=== PATIENT | male | born 1955 | race Caucasian/White ===

== ENCOUNTER 2022-02-26 12:45 | Inpatient (IN) | payer BC, MEDICARE ==
[~2022-02-26] VITALS: Ht 175.3 cm; Wt 95.4 kg
[2022-02-26] VITALS (11 sets, daily range): BP systolic 89–130; BP diastolic 49–74
[~2022-02-26 12:45] MED LIST: APIX5TAB3 PO; ASPI-1264 PO; CARV-49 PO; FURO40TA4 PO; LISI-642 PO; MELA3TAB39 PO
[2022-02-26] MEDS ORDERED: naloxone 0.4 mg/ml inj IV ONE (12:55)
[2022-02-26] MEDS ORDERED: ketamine 10mg/ml 20ml inj vial IV ONE (13:00)
[2022-02-26] MEDS ORDERED: NORepinephrine 8mg/ 250ml NS 250 ML IV ONE (13:05)
[2022-02-26 13:06] LABS: ABG BASE EXCESS -9.9 mmol/L (-2.0-2.0); ABG HCO3 20.7 mmol/L (22.0-26.0); ABG OXYGEN SATURATION 61.3 % (94-97); ABG PCO2 (T) 71.2 mmHg (35.0-48.0); ABG PO2 (T) 40.6 mmHg (75.0-100.0); ALLEN'S TEST POSITIVE; FCOHb 2.5 % (0.0-3.9); FLOW 15 L/min; FMetHb 0.2 % (0.0-1.5); FO2Hb 59.6 % (94-97); TOTAL HEMOGLOBIN 11.4 G/dl (14.0-17.9)
[2022-02-26] MEDS ORDERED: rocuronium 10mg/ml inj IV ONE (13:09)
[2022-02-26 13:15] LABS: BASOPHILS # (AUTO) 0.2 X10'3 (0-0.2); EOSINOPHILS % (AUTO) 0 % (0-6); HEMOGLOBIN 9.6 g/dl (14.0-17.9); LYMPHOCYTES # (AUTO) 0.4 X10'3 (1.1-4.8)
[2022-02-26 13:17] LABS: BASOPHILS % (AUTO) 1.6 % (0-1); HEMATOCRIT 35.4 % (42.0-52.0); LYMPHOCYTES % (AUTO) 3.2 % (21-51); MEAN CORPUSCULAR HEMOGLOBIN 19.4 PG (27.0-31.0); MEAN CORPUSCULAR VOLUME 71.7 FL (78-98); MEAN PLATELET VOLUME 9.5 FL (7.4-10.4); MONOCYTES # (AUTO) 1.5 X10'3 (0-0.9); MONOCYTES % (AUTO) 10.9 % (2-12); NEUTROPHILS # (AUTO) 11.5 X10'3 (1.8-7.7); NEUTROPHILS % (AUTO) 84.3 % (42-75); PLATELET COUNT 117 X10'3 (140-440); RED BLOOD COUNT 4.93 X10'6 (4.70-6.10); RED CELL DISTRIBUTION WIDTH 25.8 % (11.5-14.5); WHITE BLOOD COUNT 13.6 X10'3 (4.5-11.0)
[2022-02-26 13:31] LABS: ALANINE AMINOTRANSFERASE 111 U/L (12-78); ALBUMIN 2.7 G/DL (3.4-5.0); ALKALINE PHOSPHATASE 143 IU/L (46-116); ANION GAP 10 (8-16); ASPARTATE AMINO TRANSFERASE 486 U/L (10-37); BILIRUBIN,TOTAL 5.8 MG/DL (0.1-1.0); BLOOD UREA NITROGEN 38 MG/DL (7-18); BUN/CREATININE RATIO 14.6 (5.4-32.0); CHLORIDE 101 MMOL/L (99-107); CREATININE 2.61 MG/DL (0.60-1.10); GLUCOSE 106 MG/DL (70-104); POTASSIUM 4.6 MMOL/L (3.5-5.1); SODIUM 138 MMOL/L (135-145); TOTAL CARBON DIOXIDE 26.6 MMOL/L (24-32); eGFR 24 ML/MIN
[2022-02-26 13:33] LABS: ALBUMIN/GLOBULIN RATIO 0.6 (1.1-1.5); TOTAL PROTEIN 6.9 G/DL (6.4-8.2)
[2022-02-26 13:34] LABS: ETHANOL < 0.010 GM/DL (0.0-0.010)
[2022-02-26 13:38] LABS: LACTIC SEPSIS 5.5 MMOL/L (0.4-2.0)
[2022-02-26 13:39] LABS: ANISOCYTOSIS 3+; NUCLEATED RED BLOOD CELLS 2 /100WBC (0-0); PLATELET ESTIMATE DECREASED; TOTAL CELLS COUNTED 100
[2022-02-26 13:40] LABS: HYPOCHROMASIA 2+; MICROCYTOSIS 1+; POLYCHROMASIA 1+
[2022-02-26 13:41] LABS: ELLIPTOCYTES 2+; SCHISTOCYTES FEW; TARGET CELLS FEW
--- NOTE | 2022-02-26 13:59 | NUR ---
4L removed via Paracentesis
[2022-02-26] MEDS ORDERED: NORepinephrine bitart. inj. IV ONE (14:00)
[2022-02-26] MEDS ORDERED: levoFLOXACIN-Levaquin 500mg/D5 100 ML IV ONE (14:25)
[2022-02-26] MEDS ORDERED: CefTRIAXone 2gm/D5W 50ml BAG 50 ML IV ONE (14:25)
[2022-02-26] MEDS ORDERED: normal saline 1000ml 1,000 ML IV ONE ×2 (14:30)
[2022-02-26] MEDS: fentaNYL 50mcg/ml PF inj. 2,500 MCG in normal saline 250ml IV soln 200 ML IV SCH (14:48)
[2022-02-26] MEDS ORDERED: ipratropium/albuterol 3ml nebule NEB PRN (15:05)
[2022-02-26] MEDS ORDERED: LIDOcaine 2% 10ml TOPICAL JELLY (Urojet) TP ONE (15:05)
[2022-02-26] MEDS ORDERED: morphine 2 MG/ML inj. syringe IV PRN (15:05)
[2022-02-26] MEDS ORDERED: morphine 4 MG/ML inj SYRINge IV PRN (15:05)
[2022-02-26] MEDS ORDERED: ondansetron/PF 4mg/2ml inj IV PRN (15:05)
[2022-02-26] MEDS ORDERED: acetaminophen 325mg tablet PO PRN ×2 (15:05)
[2022-02-26] MEDS ORDERED: POTASSIUM BICARB 20meq eff tab 20 MEQ TABLET.EFF PO PRN ×2 (15:05)
[2022-02-26] MEDS ORDERED: normal saline 1000ml 1,000 ML IV SCH (15:05)
[2022-02-26] MEDS ORDERED: ipratropium 0.5 MG/2.5ML nebule NEB PRN (15:05)
[2022-02-26] MEDS ORDERED: magnesium hydroxide 30ml (MOM) UD suspension PO PRN (15:05)
[2022-02-26 15:12] LABS: ABG HCO3 22.1 mmol/L (22.0-26.0); ABG OXYGEN SATURATION 99.7 % (94-97); ABG PCO2 (T) 39.6 mmHg (35.0-48.0); ABG PO2 (T) 198.5 mmHg (75.0-100.0); ALLEN'S TEST POSITIVE; FMetHb 0.2 % (0.0-1.5); FO2Hb 97.5 % (94-97); PEEP 5 cm H2O; RESPIRATORY RATE 18 b/min; TIDAL VOLUME 500 mL; TOTAL HEMOGLOBIN 9.9 G/dl (14.0-17.9)
[2022-02-26] MEDS ORDERED: iohexol 300mg/ml 100ml inj. ONE (15:20)
[2022-02-26 15:22] LABS: BFAPPEAR CLOUDY; LYMPHOCYTES,BODY FLUID 2 %; MONOCYTES,BODY FLUID 3 %; NEUTROPHILS,BODY FLUID 95 %
[2022-02-26 15:23] LABS: BF RBC COUNT 5875 /CU MM; BF WBC COUNT 12175 /CU MM (0-1000); BFCOLOR YELLOW; BFVOLUME 11 ML
[2022-02-26] MEDS: NORepinephrine 8mg/ 250ml NS 250 ML IV SCH ×3 (15:35→23:41)
[2022-02-26 16:42] LABS: CLARITY,URINE SLIGHTLY CLOUDY (Clear); COLOR,URINE AMBER (Yellow)
[2022-02-26 16:48] LABS: UA COLLECTION TYPE FOLEY CATH
[2022-02-26 16:50] LABS: WBC,URINE 50-100 /HPF (0-4)
[2022-02-26 16:51] LABS: BACTERIA,URINE 4+ /HPF (Neg); COARSE GRANULAR CAST 0-3 /LPF (NEGATIVE); MUCUS STRANDS FEW /LPF (Neg); RBC,URINE 0-2 /HPF (0-2); RENAL CELLS, URINE FEW /HPF; SQUAMOUS EPITHELIAL CELL,UR NONE SEEN /LPF (FEW); URINE AMPHETAMINE SCREEN POSITIVE (Neg); URINE BARBITUATE SCREEN NEGATIVE (Neg); URINE BENZODIAZEPINES SCREEN NEGATIVE (Neg); URINE CANNABINOID SCREEN NEGATIVE (Neg); URINE COCAINE SCREEN NEGATIVE (Neg); URINE METHADONE SCREEN NEGATIVE (Neg); URINE OPIATE SCREEN NEGATIVE (Neg); URINE PHENCYCLIDINE SCREEN NEGATIVE (Neg); WBC CLUMPS,URINE FEW /HPF (NEGATIVE)
--- NOTE | 2022-02-26 17:03 | NUR ---
Pt. to room [address] scan (and ED) at 1600. Coude catheter placed, pt. hooked up to bedside monitor, RT here to place pt. on vent. Labs, UA and MRSA nasal swab obtained and send to lab. Wound pics obtained per policy. Pt. cool with esophageal temp probe reading 31.4 and temporal reading the same. SELIN golden placed on pt. boiler/chiller technician here.
[2022-02-26] MEDS: lactulose 20gm/30ml cup PO SCH ×2 (17:16→21:01)
[2022-02-26 17:44] LABS: MAGNESIUM 1.7 MG/DL (1.5-2.4)
--- NOTE | 2022-02-26 17:51 | NUR ---
Pt. responds to verbal stimuli.
--- NOTE | 2022-02-26 18:12 | NUR ---
Problems reprioritized. Patient report given, questions answered & plan of care reviewed with Mac RN.
[2022-02-26] MEDS ORDERED: normal saline 1000ml 1,000 ML IVB ONE (19:45)
--- NOTE | 2022-02-26 19:46 | NUR ---
Communication -Called Dr. Bradford regarding hypotension and hypothermia. Pt currently on Levo and Lima Hugger. Received order to add Vasopressin and give 1 liter of warmed NS over 2 hours. Saline is running through blood warmer at 41 C.
[2022-02-26] MEDS ORDERED: vasopressin inj. 40 UNIT in dextrose 5%-water 50ml 38 ML IV SCH (19:54)
[2022-02-26] MEDS: heparin, porcine 5000 units/ml vial SQ SCH (21:00)
[2022-02-26] MEDS ORDERED: dextrose 50%-water 50ml dispensing syringe IV ONE (23:04)
--- NOTE | 2022-02-26 23:30 | NUR ---
Communication -Called Dr. Bradford regarding POC glucose of 36. Orders received.
[2022-02-26] MEDS ORDERED: dextrose 5%-normal saline 1,000 ML IV SCH (23:35)
[2022-02-27] VITALS (34 sets, daily range): BP systolic 77–130; BP diastolic 41–73
[2022-02-27 00:49] LABS: ALANINE AMINOTRANSFERASE 85 U/L (12-78); ALBUMIN 1.6 G/DL (3.4-5.0); ALKALINE PHOSPHATASE 96 IU/L (46-116); ANION GAP 13 (8-16); ASPARTATE AMINO TRANSFERASE 344 U/L (10-37); BLOOD UREA NITROGEN 41 MG/DL (7-18); BUN/CREATININE RATIO 16.6 (5.4-32.0); CALCIUM 7.8 MG/DL (8.5-10.1); CHLORIDE 104 MMOL/L (99-107); CREATININE 2.47 MG/DL (0.60-1.10); GLUCOSE 122 MG/DL (70-104); MAGNESIUM 1.6 MG/DL (1.5-2.4); POTASSIUM 4.2 MMOL/L (3.5-5.1); SODIUM 141 MMOL/L (135-145); TOTAL CARBON DIOXIDE 23.6 MMOL/L (24-32); eGFR 26 ML/MIN
[2022-02-27 00:56] LABS: ALBUMIN/GLOBULIN RATIO 0.6 (1.1-1.5); PHOSPHORUS 4.3 MG/DL (2.3-4.5); TOTAL PROTEIN 4.4 G/DL (6.4-8.2)
[2022-02-27] MEDS ORDERED: dextrose 50%-water 50ml dispensing syringe IV ONE ×4 (02:50→08:05)
--- NOTE | 2022-02-27 03:15 | NUR ---
Communication -Called Dr. Bradford regarding POC glucose of 40. Orders received.
[2022-02-27] MEDS: DEXTROSE 10 % AND 0.45 % NACL 1,000 ML IV SCH ×3 (03:27→23:22)
[2022-02-27] MEDS: NORepinephrine 8mg/ 250ml NS 250 ML IV SCH (03:28)
[2022-02-27 04:01] LABS: CHLORIDE 105 MMOL/L (99-107); MAGNESIUM 1.7 MG/DL (1.5-2.4); POTASSIUM 4.6 MMOL/L (3.5-5.1); SODIUM 141 MMOL/L (135-145)
[2022-02-27] MEDS ORDERED: CALCIUM GLUC 1gm/50ml NACL,iso 50 ML IV ONE (04:05)
--- NOTE | 2022-02-27 04:06 | NUR ---
MD Communication -Called Dr. Bradford regarding continued hypoglycemia and hypotension. Orders received.
[2022-02-27 04:08] LABS: ABG BASE EXCESS -4.9 mmol/L (-2.0-2.0); ABG HCO3 21.1 mmol/L (22.0-26.0); ABG OXYGEN SATURATION 94.2 % (94-97); ABG PCO2 (T) 44.1 mmHg (35.0-48.0); ABG PO2 (T) 81.4 mmHg (75.0-100.0); ALLEN'S TEST POSITIVE; FCOHb 1.4 % (0.0-3.9); FMetHb 0.2 % (0.0-1.5); FO2Hb 92.7 % (94-97); PATIENT TEMPERATURE 37.9; PEEP 5 cm H2O; RESPIRATORY RATE 18 b/min; TIDAL VOLUME 500 mL; TOTAL HEMOGLOBIN 10.9 G/dl (14.0-17.9)
[2022-02-27 04:10] LABS: EOSINOPHILS % (AUTO) 0.1 % (0-6); LYMPHOCYTES # (AUTO) 0.3 X10'3 (1.1-4.8); NEUTROPHILS # (AUTO) 6.1 X10'3 (1.8-7.7); RED BLOOD COUNT 5.21 X10'6 (4.70-6.10)
[2022-02-27 04:13] LABS: BASOPHILS % (AUTO) 0.2 % (0-1); HEMOGLOBIN 10.4 g/dl (14.0-17.9); LYMPHOCYTES % (AUTO) 4.3 % (21-51); MEAN PLATELET VOLUME 8.9 FL (7.4-10.4); MONOCYTES # (AUTO) 0.9 X10'3 (0-0.9); MONOCYTES % (AUTO) 11.7 % (2-12); NEUTROPHILS % (AUTO) 83.7 % (42-75); WHITE BLOOD COUNT 7.3 X10'3 (4.5-11.0)
[2022-02-27 04:18] LABS: ALANINE AMINOTRANSFERASE 85 U/L (12-78); ALBUMIN 1.6 G/DL (3.4-5.0); ALKALINE PHOSPHATASE 99 IU/L (46-116); ANION GAP 11 (8-16); ASPARTATE AMINO TRANSFERASE 346 U/L (10-37); BILIRUBIN,TOTAL 3.9 MG/DL (0.1-1.0); BLOOD UREA NITROGEN 43 MG/DL (7-18); BUN/CREATININE RATIO 17.2 (5.4-32.0); CALCIUM 7.8 MG/DL (8.5-10.1); TOTAL CARBON DIOXIDE 24.6 MMOL/L (24-32); eGFR 26 ML/MIN
[2022-02-27 04:21] LABS: ALBUMIN/GLOBULIN RATIO 0.5 (1.1-1.5); TOTAL PROTEIN 4.6 G/DL (6.4-8.2)
[2022-02-27 04:22] LABS: GLUCOSE 42 MG/DL (70-104)
[2022-02-27] MEDS: NORepinephrine inj. 32 MG in normal saline 250ml IV soln 218 ML IV SCH ×2 (04:51→11:26)
[2022-02-27] MEDS ORDERED: dexamethasone 4mg/ml inj IV ONE (05:05)
--- NOTE | 2022-02-27 05:06 | NUR ---
MD Communication -Called Dr. Bradford regarding continued hypoglycemia. Orders received.
--- NOTE | 2022-02-27 05:50 | NUR ---
Communication -Called Dr. Bradford regarding hypoglycemia. Order received.
[2022-02-27 05:51] LABS: HEMATOCRIT 34.2 % (42.0-52.0); MEAN CORPUSCULAR VOLUME 66.7 FL (78-98)
[2022-02-27 05:52] LABS: MEAN CORPUSCULAR HEMOGLOBIN 20.4 PG (27.0-31.0); MEAN CORPUSCULAR HGB CONC 30.7 g/dL (33.0-36.5)
[2022-02-27 05:53] LABS: PLATELET COUNT 90 X10'3 (140-440)
--- NOTE | 2022-02-27 06:00 | NUR ---
Patient in room CICU 2009. I have received report from Mac RN and had the opportunity to ask questions and assume patient care.
[2022-02-27 06:53] LABS: NUCLEATED RED BLOOD CELLS 7 /100WBC (0-0); TOTAL CELLS COUNTED 100
[2022-02-27 06:54] LABS: ANISOCYTOSIS 3+; BURR CELLS 1+; HYPOCHROMASIA 1+; MICROCYTOSIS 2+; PLATELET ESTIMATE DECREASED
[2022-02-27 06:55] LABS: ELLIPTOCYTES 2+; LARGE PLATELETS FEW; SCHISTOCYTES FEW; TARGET CELLS FEW
[2022-02-27] MEDS ORDERED: pantoprazole 40mg Tablet.DR PO SCH (07:30)
--- NOTE | 2022-02-27 07:34 | NUR ---
TF consult: Pt found down w/ acute respiratory failure, septic shock, and chronic liver disease per EMR, had paracentesis in ER w/ 4L out per MD note. Currently intubated and sedated, receiving D10 1/2NS at 100ml/hr (816kcals). See TF recs below d/w RN. CRONIN pending for skin breakdown on buttocks and hip. Will continue to monitor. Recs; 1) Continuous TF using Vital HP at 80ml/hr goal to provide 1920ml volume, 1920kcals, 1678g protein, 1605ml free water. Monitor for scaled wt 2) Additional water flush 75ml Q4H; monitor serum Na 3) PALB Q / 4) Daily wts 5) Bowel care per rx Addendum: 02/27/22 at [address] Amended: Links added.
[2022-02-27] MEDS: K and/or MAG REPLACEMENT MC SCH (08:00)
[2022-02-27] MEDS ORDERED: glucagon, human recombinant 1mg kit SUBCUT PRN (08:05)
[2022-02-27] MEDS ORDERED: dextrose 50%-water 50ml dispensing syringe IV PRN ×2 (08:05)
[2022-02-27] MEDS ORDERED: MESSAGE TO PHARMACY PO ONE (08:05)
[2022-02-27] MEDS ORDERED: DEXTROSE 15 GM of carb/4 tabs (each vial/BOTTLE has 4 tablets) PO PRN ×2 (08:05)
[2022-02-27] MEDS ORDERED: insulin regular, human U-100 3ml vial - multi-dose SQ SCH (08:05)
[2022-02-27] MEDS: CefTRIAXone/D5W-Rocephin 1gm 50 ML IV SCH (08:06)
[2022-02-27] MEDS: pantoprazole 40MG/NS 100ML BAG 100 ML IV SCH (08:10)
[2022-02-27] MEDS: heparin, porcine 5000 units/ml vial SQ SCH ×2 (08:11→20:00)
[2022-02-27] MEDS: lactulose 20gm/30ml cup PO SCH (08:11)
[2022-02-27] MEDS: vasopressin inj. 40 UNIT in normal saline 50ml IV soln 38 ML IV SCH (08:13)
[2022-02-27 08:16] LABS: PREALBUMIN 2.1 MG/DL (19-36)
[2022-02-27 08:28] LABS: HEMOGLOBIN A1C 5.7 % (4.5-6.2)
[2022-02-27] MEDS ORDERED: POTASSIUM BICARB 20meq eff tab 20 MEQ TABLET.EFF OGT PRN ×2 (10:59→11:00)
[2022-02-27] MEDS ORDERED: acetaminophen 325mg tablet OGT PRN ×2 (11:00)
[2022-02-27] MEDS ORDERED: DEXTROSE 15 GM of carb/4 tabs (each vial/BOTTLE has 4 tablets) OGT PRN ×2 (11:00)
[2022-02-27] MEDS: lactulose 20gm/30ml cup OGT SCH ×3 (13:00→20:44)
[2022-02-27] MEDS ORDERED: UNABLE TO OBTAIN (14:50)
--- NOTE | 2022-02-27 17:52 | NUR ---
During 1699 turn, and oral care patient was noted to have a much larger and firmer distended belly, called Dr. Pérez after obtaining a KUB that showed multiple loops of dialted bowel, Dr. Pérez ordered a stat abd and pelvis with no contrast and lactic acid Addendum: 02/27/22 at 1755 by Li Moulton RN also informed Dr. Pérez that i stopped tube feed and placed on LIS to which patient is now having julio red blood gastric contents
--- NOTE | 2022-02-27 18:30 | NUR ---
Patient in room CICU 2009. I have received report from Li JIMENEZ and had the opportunity to ask questions and assume patient care.
--- NOTE | 2022-02-27 18:44 | NUR ---
Problems reprioritized. Patient report given, questions answered & plan of care reviewed with Shani JIMENEZ.
[2022-02-27] MEDS: insulin glargine (Lantus) pen - multi-dose SQ SCH (20:45)
[2022-02-27 21:19] LABS: MEAN PLATELET VOLUME 8.8 FL (7.4-10.4); WHITE BLOOD COUNT 20.2 X10'3 (4.5-11.0)
[2022-02-27 21:46] LABS: HEMATOCRIT 30.8 % (42.0-52.0); PLATELET COUNT 44 X10'3 (140-440); RED BLOOD COUNT 4.77 X10'6 (4.70-6.10)
[2022-02-27 21:47] LABS: MEAN CORPUSCULAR HGB CONC 32.6 g/dL (33.0-36.5); MEAN CORPUSCULAR VOLUME 64.6 FL (78-98); RED CELL DISTRIBUTION WIDTH 25.3 % (11.5-14.5)
[2022-02-28] VITALS (35 sets, daily range): BP systolic 100–141; BP diastolic 53–77
[2022-02-28 02:32] LABS: BASOPHILS % (AUTO) 0.1 % (0-1); EOSINOPHILS % (AUTO) 0 % (0-6)
[2022-02-28 02:36] LABS: LYMPHOCYTES # (AUTO) 0.8 X10'3 (1.1-4.8); LYMPHOCYTES % (AUTO) 4.1 % (21-51); MEAN PLATELET VOLUME 8.7 FL (7.4-10.4); MONOCYTES # (AUTO) 2.8 X10'3 (0-0.9); MONOCYTES % (AUTO) 13.6 % (2-12); NEUTROPHILS # (AUTO) 17.2 X10'3 (1.8-7.7); NEUTROPHILS % (AUTO) 82.2 % (42-75)
[2022-02-28 02:46] LABS: ALANINE AMINOTRANSFERASE 78 U/L (12-78); ALBUMIN 1.6 G/DL (3.4-5.0); ALBUMIN/GLOBULIN RATIO 0.5 (1.1-1.5); ALKALINE PHOSPHATASE 98 IU/L (46-116); ANION GAP 11 (8-16); ASPARTATE AMINO TRANSFERASE 203 U/L (10-37); BILIRUBIN,TOTAL 4.8 MG/DL (0.1-1.0); BLOOD UREA NITROGEN 45 MG/DL (7-18); BUN/CREATININE RATIO 19.7 (5.4-32.0); CALCIUM 7.6 MG/DL (8.5-10.1); CHLORIDE 103 MMOL/L (99-107); CREATININE 2.28 MG/DL (0.60-1.10); GLUCOSE 114 MG/DL (70-104); MAGNESIUM 1.6 MG/DL (1.5-2.4); POTASSIUM 3.9 MMOL/L (3.5-5.1); SODIUM 138 MMOL/L (135-145); TOTAL CARBON DIOXIDE 23.9 MMOL/L (24-32); TOTAL PROTEIN 4.6 G/DL (6.4-8.2); eGFR 28 ML/MIN
[2022-02-28 03:21] LABS: HEMOGLOBIN 10.2 g/dl (14.0-17.9); MEAN CORPUSCULAR HEMOGLOBIN 20.4 PG (27.0-31.0); MEAN CORPUSCULAR HGB CONC 31.6 g/dL (33.0-36.5); MEAN CORPUSCULAR VOLUME 64.8 FL (78-98); PLATELET COUNT 31 X10'3 (140-440); RED BLOOD COUNT 5.01 X10'6 (4.70-6.10)
[2022-02-28 03:32] LABS: ANISOCYTOSIS 3+; NUCLEATED RED BLOOD CELLS 1 /100WBC (0-0); PLATELET ESTIMATE DECREASED; TOTAL CELLS COUNTED 100
[2022-02-28 03:33] LABS: BURR CELLS 2+; HYPOCHROMASIA 1+; MICROCYTOSIS 3+; SCHISTOCYTES FEW
[2022-02-28 03:34] LABS: ELLIPTOCYTES 1+; POLYCHROMASIA FEW
[2022-02-28 03:36] LABS: LARGE PLATELETS FEW; TARGET CELLS FEW
[2022-02-28 04:24] LABS: ABG OXYGEN SATURATION 96.9 % (94-97); ABG PCO2 (T) 34.4 mmHg (35.0-48.0); ABG PO2 (T) 90.8 mmHg (75.0-100.0); FCOHb 1.1 % (0.0-3.9); FMetHb 0.3 % (0.0-1.5); FO2Hb 95.5 % (94-97); PATIENT TEMPERATURE 37.5; PEEP 5 cm H2O; RESPIRATORY RATE 18 b/min; TIDAL VOLUME 500 mL
[2022-02-28] MEDS: vasopressin inj. 40 UNIT in normal saline 50ml IV soln 38 ML IV SCH (04:28)
[2022-02-28] MEDS: NORepinephrine inj. 32 MG in normal saline 250ml IV soln 218 ML IV SCH ×2 (04:30→23:08)
--- NOTE | 2022-02-28 06:15 | NUR ---
Problems reprioritized. Patient report given, questions answered & plan of care reviewed with Li JIMENEZ.
--- NOTE | 2022-02-28 06:46 | NUR ---
Patient in room CICU 2009. I have received report from Shani JIMENEZ and had the opportunity to ask questions and assume patient care.
[2022-02-28] MEDS: pantoprazole 40MG/NS 100ML BAG 100 ML IV SCH (07:48)
[2022-02-28] MEDS: CefTRIAXone/D5W-Rocephin 1gm 50 ML IV SCH (07:48)
[2022-02-28] MEDS: K and/or MAG REPLACEMENT MC SCH (07:54)
[2022-02-28] MEDS: lactulose 20gm/30ml cup OGT SCH ×4 (08:00→20:35)
[2022-02-28] MEDS ORDERED: levoFLOXACIN-Levaquin 250mg/D5 50 ML IV SCH (08:00)
[2022-02-28] MEDS: DEXTROSE 10 % AND 0.45 % NACL 1,000 ML IV SCH ×2 (09:53→19:53)
--- NOTE | 2022-02-28 11:19 | NUR ---
F/u: Per KUB (02/26) pt with severely distended loops of large bowel with luminal wall thickening of the descending and sigmoid colon with a large amount of stool seen in the rectum. RN notes (02/27) state patient's abdomen is larger, firmer, and more distended and pt with julio red blood from OGT once placed on LIS. Pt has not been receiving TF however per RN today at [facility] pt no longer with an UGIB. MD okays resuming tube feeds starting at a trickle rate and increasing to goal as tolerated. MD okays starting routine Thiamine, Folic acid, and MVM with iron in view of likely EtOH hx and low MCV. MD states will also check vitamin B12 levels. Pt seen by wound care, per note pt with an open area to left hip and a skin tear to left lower arm. Will continue to follow closely. Addendum: 02/28/22 at [address] Amended: Links added.
[2022-02-28] MEDS: hydrocortisone sod succ/PF 100mg/2ml inj. IV SCH ×3 (11:50→23:09)
[2022-02-28] MEDS: fentaNYL 50mcg/ml PF inj. 2,500 MCG in normal saline 250ml IV soln 200 ML IV SCH (11:54)
[2022-02-28] MEDS ORDERED: MVI, adult No.4 with vit. K 10 ML in dextrose 5% water 500ml 500 ML IV SCH ×2 (12:00)
[2022-02-28] MEDS: ferrous sulfate 300mg/5ml UD oral liquid PO SCH ×2 (13:12→17:40)
[2022-02-28] MEDS: folic acid 1mg/0.2ml inj IV SCH (13:13)
[2022-02-28] MEDS: thiamine 100mg/ml 2ml inj. IV SCH (13:14)
--- NOTE | 2022-02-28 14:42 | NUR ---
Rounds note Reviewed labs, drips, radiology reports and current status. New orders re-start trickle feeds, draw a JULIETTE panel, vitamin b12, add multivitamin to med regimen, and stop trending lactic acid.
--- NOTE | 2022-02-28 16:21 | NUR ---
Called Dr Pérez informed him of increasing blood sugar stated to stop the D10 1/2NS
--- NOTE | 2022-02-28 18:28 | NUR ---
Patient in room CICU 2009. I have received report from Li JIMENEZ and had the opportunity to ask questions and assume patient care.
--- NOTE | 2022-02-28 18:34 | NUR ---
Problems reprioritized. Patient report given, questions answered & plan of care reviewed with Shani JIMENEZ.
[2022-02-28] MEDS: insulin glargine (Lantus) pen - multi-dose SQ SCH (20:35)
[2022-03-01] VITALS (35 sets, daily range): BP systolic 94–137; BP diastolic 51–72
[2022-03-01 02:25] LABS: EOSINOPHILS % (AUTO) 0 % (0-6); HEMOGLOBIN 9.6 g/dl (14.0-17.9); LYMPHOCYTES # (AUTO) 0.5 X10'3 (1.1-4.8); MEAN CORPUSCULAR VOLUME 65.4 FL (78-98); MONOCYTES # (AUTO) 1.8 X10'3 (0-0.9)
[2022-03-01 02:27] LABS: BASOPHILS % (AUTO) 0.1 % (0-1); HEMATOCRIT 31.7 % (42.0-52.0); MEAN CORPUSCULAR HEMOGLOBIN 19.9 PG (27.0-31.0); MEAN CORPUSCULAR HGB CONC 30.4 g/dL (33.0-36.5); MONOCYTES % (AUTO) 10.6 % (2-12); NEUTROPHILS # (AUTO) 14.7 X10'3 (1.8-7.7); NEUTROPHILS % (AUTO) 86.3 % (42-75); RED BLOOD COUNT 4.84 X10'6 (4.70-6.10); RED CELL DISTRIBUTION WIDTH 26.5 % (11.5-14.5); WHITE BLOOD COUNT 17.1 X10'3 (4.5-11.0)
[2022-03-01 02:42] LABS: ALANINE AMINOTRANSFERASE 59 U/L (12-78); ALBUMIN 1.6 G/DL (3.4-5.0); ALKALINE PHOSPHATASE 102 IU/L (46-116); ANION GAP 12 (8-16); ASPARTATE AMINO TRANSFERASE 87 U/L (10-37); BILIRUBIN,TOTAL 5.2 MG/DL (0.1-1.0); BLOOD UREA NITROGEN 48 MG/DL (7-18); BUN/CREATININE RATIO 25.9 (5.4-32.0); CALCIUM 7.7 MG/DL (8.5-10.1); CHLORIDE 102 MMOL/L (99-107); CREATININE 1.85 MG/DL (0.60-1.10); GLUCOSE 105 MG/DL (70-104); MAGNESIUM 1.6 MG/DL (1.5-2.4); POTASSIUM 3.5 MMOL/L (3.5-5.1); SODIUM 139 MMOL/L (135-145); TOTAL CARBON DIOXIDE 25.2 MMOL/L (24-32); eGFR 37 ML/MIN
[2022-03-01 02:43] LABS: ALBUMIN/GLOBULIN RATIO 0.5 (1.1-1.5); TOTAL PROTEIN 4.6 G/DL (6.4-8.2)
[2022-03-01 02:54] LABS: PLATELET COUNT 22 X10'3 (140-440)
[2022-03-01 03:04] LABS: ANISOCYTOSIS 3+; NUCLEATED RED BLOOD CELLS 2 /100WBC (0-0); PLATELET ESTIMATE DECREASED; TOTAL CELLS COUNTED 100
[2022-03-01 03:05] LABS: MICROCYTOSIS 2+; TOXIC GRANULATION 1+
[2022-03-01 03:06] LABS: BURR CELLS 2+; ELLIPTOCYTES 1+; POLYCHROMASIA FEW; TEAR DROP CELLS FEW
[2022-03-01 03:07] LABS: SCHISTOCYTES FEW
[2022-03-01 03:36] LABS: ABG BASE EXCESS -0.7 mmol/L (-2.0-2.0); ABG HCO3 22.3 mmol/L (22.0-26.0); ABG OXYGEN SATURATION 97.5 % (94-97); ABG PCO2 (T) 31.5 mmHg (35.0-48.0); ABG PO2 (T) 90.8 mmHg (75.0-100.0); FCOHb 1.3 % (0.0-3.9); FMetHb 0.2 % (0.0-1.5); PATIENT TEMPERATURE 37.3; PEEP 5 cm H2O; RESPIRATORY RATE 18 b/min; TIDAL VOLUME 500 mL; TOTAL HEMOGLOBIN 10.7 G/dl (14.0-17.9)
[2022-03-01] MEDS: vasopressin inj. 40 UNIT in normal saline 50ml IV soln 38 ML IV SCH (05:11)
[2022-03-01] MEDS: hydrocortisone sod succ/PF 100mg/2ml inj. IV SCH ×3 (05:17→17:26)
[2022-03-01] MEDS: DEXTROSE 10 % AND 0.45 % NACL 1,000 ML IV SCH (05:53)
--- NOTE | 2022-03-01 06:15 | NUR ---
Problems reprioritized. Patient report given, questions answered & plan of care reviewed with Li JIMENEZ.
--- NOTE | 2022-03-01 06:41 | NUR ---
Patient in room CICU 2009. I have received report from Shani JIMENEZ and had the opportunity to ask questions and assume patient care.
[2022-03-01] MEDS: thiamine 100mg/ml 2ml inj. IV SCH (07:40)
[2022-03-01] MEDS: lactulose 20gm/30ml cup OGT SCH (07:40)
[2022-03-01] MEDS: ferrous sulfate 300mg/5ml UD oral liquid PO SCH ×3 (07:40→17:27)
[2022-03-01] MEDS: folic acid 1mg/0.2ml inj IV SCH (07:40)
[2022-03-01] MEDS: pantoprazole 40MG/NS 100ML BAG 100 ML IV SCH (07:41)
[2022-03-01] MEDS: CefTRIAXone 2gm/D5W 50ml BAG 50 ML IV SCH (07:41)
[2022-03-01] MEDS: K and/or MAG REPLACEMENT MC SCH (08:00)
[2022-03-01 10:16] LABS: HBSAG SCREEN Negative (Negative); HEP A AB, IGM Negative (Negative); HEPATITIS C ANTIBODY <0.1 s/co ratio (0.0-0.9)
--- NOTE | 2022-03-01 11:17 | NUR ---
Rounds note, labs reviewed discussed drop in H/H and plts new ordrers for ptt,fibrinogen and hepta, reviewed systems, Neuro; fentanyl off since 02/28 retracts and stiffens to touch and movement no tracking or following commands cardiac; vaso off, levophed decreasing, Resp; fio2 down to 30% peep of 5 trilled cpap which he failed and was placed back on a rate ; urine out put decreasing significantly, GI; several bowel movements, distended abdomen more ascites related, tolerating tube feed well, increase tube feed to goal as tolerated integu; skin issues being followed by wound care, patient has weeping at wound sites Meds D/C lactulose.
[2022-03-01] MEDS: insulin glargine (Lantus) pen - multi-dose SQ SCH (20:49)
[2022-03-01] MEDS ORDERED: NORepinephrine 8mg/ 250ml NS 250 ML IV SCH (23:00)
[2022-03-02] VITALS (34 sets, daily range): BP systolic 101–148; BP diastolic 54–71
[2022-03-02] MEDS: hydrocortisone sod succ/PF 100mg/2ml inj. IV SCH ×3 (00:01→15:55)
[2022-03-02 02:37] LABS: EOSINOPHILS % (AUTO) 0 % (0-6); MONOCYTES # (AUTO) 2.1 X10'3 (0-0.9)
[2022-03-02 02:39] LABS: BASOPHILS % (AUTO) 0.1 % (0-1); LYMPHOCYTES # (AUTO) 0.4 X10'3 (1.1-4.8); LYMPHOCYTES % (AUTO) 2.6 % (21-51); MEAN PLATELET VOLUME 10.8 FL (7.4-10.4); MONOCYTES % (AUTO) 12.5 % (2-12); NEUTROPHILS % (AUTO) 84.8 % (42-75); WHITE BLOOD COUNT 16.5 X10'3 (4.5-11.0)
[2022-03-02 02:53] LABS: ALANINE AMINOTRANSFERASE 44 U/L (12-78); ALBUMIN 1.5 G/DL (3.4-5.0); ALKALINE PHOSPHATASE 131 IU/L (46-116); ANION GAP 15 (8-16); ASPARTATE AMINO TRANSFERASE 52 U/L (10-37); BILIRUBIN,TOTAL 4.5 MG/DL (0.1-1.0); BLOOD UREA NITROGEN 59 MG/DL (7-18); BUN/CREATININE RATIO 30.1 (5.4-32.0); CALCIUM 7.8 MG/DL (8.5-10.1); CHLORIDE 103 MMOL/L (99-107); CREATININE 1.96 MG/DL (0.60-1.10); GLUCOSE 118 MG/DL (70-104); MAGNESIUM 1.8 MG/DL (1.5-2.4); POTASSIUM 3.6 MMOL/L (3.5-5.1); SODIUM 144 MMOL/L (135-145); TOTAL CARBON DIOXIDE 26.2 MMOL/L (24-32); eGFR 34 ML/MIN
[2022-03-02 03:14] LABS: ALBUMIN/GLOBULIN RATIO 0.5 (1.1-1.5); TOTAL PROTEIN 4.6 G/DL (6.4-8.2)
[2022-03-02 03:18] LABS: PREALBUMIN 3.8 MG/DL (19-36)
[2022-03-02 03:24] LABS: HEMATOCRIT 27.7 % (42.0-52.0); MEAN CORPUSCULAR VOLUME 63.6 FL (78-98); PLATELET COUNT 19 X10'3 (140-440); RED BLOOD COUNT 4.36 X10'6 (4.70-6.10)
[2022-03-02 03:25] LABS: MEAN CORPUSCULAR HEMOGLOBIN 20.6 PG (27.0-31.0); MEAN CORPUSCULAR HGB CONC 32.3 g/dL (33.0-36.5); RED CELL DISTRIBUTION WIDTH 26.1 % (11.5-14.5)
[2022-03-02 03:43] LABS: ABG BASE EXCESS 0.3 mmol/L (-2.0-2.0); ABG HCO3 23.4 mmol/L (22.0-26.0); ABG OXYGEN SATURATION 98.1 % (94-97); ABG PCO2 (T) 32.3 mmHg (35.0-48.0); ABG PO2 (T) 97.8 mmHg (75.0-100.0); FCOHb 1.1 % (0.0-3.9); PATIENT TEMPERATURE 36.9; PEEP 5 cm H2O; RESPIRATORY RATE 14 b/min; TIDAL VOLUME 500 mL; TOTAL HEMOGLOBIN 9.9 G/dl (14.0-17.9)
[2022-03-02] MEDS: folic acid 1mg/0.2ml inj IV SCH (08:55)
[2022-03-02] MEDS: pantoprazole 40MG/NS 100ML BAG 100 ML IV SCH (08:55)
[2022-03-02] MEDS: ferrous sulfate 300mg/5ml UD oral liquid PO SCH (08:55)
[2022-03-02] MEDS: CefTRIAXone 2gm/D5W 50ml BAG 50 ML IV SCH (08:55)
[2022-03-02] MEDS: thiamine 100mg/ml 2ml inj. IV SCH (08:55)
[2022-03-02] MEDS ORDERED: lactulose 20gm/30ml cup PO SCH (10:40)
[2022-03-02] MEDS ORDERED: magnesium hydroxide 30ml (MOM) UD suspension OGT PRN (11:03)
--- NOTE | 2022-03-02 11:04 | NUR ---
Reassessment: Pt remains intubated. TF has been advanced to RD recommended goal rate and pt tolerating with GRV WNL. Overall GRVs have been low however up to 250 mL this morning per RN, still WNL not warranting any changes to continuance of TF. LBM 02/28. Routine Lactulose discontinued on 03/01 however to be resumed today per MD at critical care rounds d/t elevated NH3. No changes to nutrition recommendations at this time. Will continue to follow closely. Recommendations: 1) Continuous TF using Vital HP at 80 ml/hr goal to provide 1920 ml volume, 1920 kcal, 1678 g protein, and 1605 ml water 2) Additional 75 mL water flush Q4H; monitor serum Na 3) PALB q Sunday/ 4) Daily scaled wts 5) Bowel care per rx 6) Routine Thiamine, Folic acid, and MVM with Iron in view of likely EtOH hx with low MCV Addendum: 03/02/22 at [address] Amended: Links added.
[2022-03-02] MEDS: ferrous sulfate 300mg/5ml UD oral liquid OGT SCH ×2 (11:48→16:35)
[2022-03-02] MEDS: lactulose 20gm/30ml cup OGT SCH ×2 (11:48→20:45)
--- NOTE | 2022-03-02 15:49 | NUR ---
MD aware of increased gastric residuals; start lactulose.
--- NOTE | 2022-03-02 16:21 | NUR ---
Residuals remain elevated; Dr. Pérez called. Orders to start scheduled Reglan and hold tube feed through the night; continue Lactulose. Will reassess in the AM.
[2022-03-02] MEDS: metoclopramide 5 mg/ml inj IV SCH ×2 (16:35→20:45)
--- NOTE | 2022-03-02 18:24 | NUR ---
Problems reprioritized. Patient report given, questions answered & plan of care reviewed with Mac RN.
[2022-03-02] MEDS: insulin glargine (Lantus) pen - multi-dose SQ SCH (20:44)
[2022-03-03] VITALS (36 sets, daily range): BP systolic 105–185; BP diastolic 50–82
[2022-03-03] MEDS: hydrocortisone sod succ/PF 100mg/2ml inj. IV SCH ×4 (00:44→23:15)
[2022-03-03] MEDS: lactulose 20gm/30ml cup OGT SCH ×4 (02:00→20:41)
[2022-03-03] MEDS: metoclopramide 5 mg/ml inj IV SCH ×4 (02:00→20:42)
[2022-03-03 02:55] LABS: ABG BASE EXCESS 2.1 mmol/L (-2.0-2.0); ABG HCO3 24.7 mmol/L (22.0-26.0); ABG OXYGEN SATURATION 96.5 % (94-97); ABG PCO2 (T) 31.2 mmHg (35.0-48.0); ABG PO2 (T) 77.7 mmHg (75.0-100.0); FCOHb 1.2 % (0.0-3.9); FMetHb 0.1 % (0.0-1.5); FO2Hb 95.2 % (94-97); PATIENT TEMPERATURE 36.8; PEEP 5 cm H2O; RESPIRATORY RATE 14 b/min; TIDAL VOLUME 500 mL; TOTAL HEMOGLOBIN 10.5 G/dl (14.0-17.9)
[2022-03-03 03:20] LABS: BASOPHILS # (AUTO) 0.1 X10'3 (0-0.2); BASOPHILS % (AUTO) 0.5 % (0-1); EOSINOPHILS % (AUTO) 0 % (0-6); LYMPHOCYTES # (AUTO) 0.3 X10'3 (1.1-4.8); MEAN PLATELET VOLUME 10.8 FL (7.4-10.4); RED BLOOD COUNT 4.67 X10'6 (4.70-6.10)
[2022-03-03 03:22] LABS: HEMATOCRIT 30.4 % (42.0-52.0); HEMOGLOBIN 9.2 g/dl (14.0-17.9); MEAN CORPUSCULAR HEMOGLOBIN 19.7 PG (27.0-31.0); MEAN CORPUSCULAR HGB CONC 30.3 g/dL (33.0-36.5); MEAN CORPUSCULAR VOLUME 65.1 FL (78-98); MONOCYTES # (AUTO) 1.8 X10'3 (0-0.9); MONOCYTES % (AUTO) 12.1 % (2-12); NEUTROPHILS % (AUTO) 85.4 % (42-75); RED CELL DISTRIBUTION WIDTH 26.8 % (11.5-14.5); WHITE BLOOD COUNT 15.2 X10'3 (4.5-11.0)
[2022-03-03 03:28] LABS: PLATELET COUNT 18 X10'3 (140-440)
[2022-03-03 03:31] LABS: ALANINE AMINOTRANSFERASE 41 U/L (12-78); ALBUMIN 1.5 G/DL (3.4-5.0); ALKALINE PHOSPHATASE 228 IU/L (46-116); ANION GAP 10 (8-16); ASPARTATE AMINO TRANSFERASE 64 U/L (10-37); BILIRUBIN,TOTAL 4.9 MG/DL (0.1-1.0); BLOOD UREA NITROGEN 72 MG/DL (7-18); BUN/CREATININE RATIO 35.3 (5.4-32.0); CHLORIDE 104 MMOL/L (99-107); CREATININE 2.04 MG/DL (0.60-1.10); GLUCOSE 106 MG/DL (70-104); POTASSIUM 3.8 MMOL/L (3.5-5.1); SODIUM 142 MMOL/L (135-145); TOTAL CARBON DIOXIDE 27.6 MMOL/L (24-32); eGFR 33 ML/MIN
[2022-03-03 03:34] LABS: ALBUMIN/GLOBULIN RATIO 0.5 (1.1-1.5); PHOSPHORUS 2.6 MG/DL (2.3-4.5); TOTAL PROTEIN 4.6 G/DL (6.4-8.2)
[2022-03-03 04:49] LABS: TOTAL CELLS COUNTED 100
[2022-03-03 04:50] LABS: ANISOCYTOSIS 3+; MICROCYTOSIS 2+; PLATELET ESTIMATE DECREASED; TARGET CELLS FEW
[2022-03-03 04:51] LABS: BURR CELLS 2+; SCHISTOCYTES FEW
[2022-03-03 04:52] LABS: ELLIPTOCYTES 1+; POLYCHROMASIA FEW
--- NOTE | 2022-03-03 06:00 | NUR ---
Pt has not had any definitively purposeful movement. Eyes move side to side, but does not track.
[2022-03-03] MEDS: pantoprazole 40MG/NS 100ML BAG 100 ML IV SCH (11:15)
[2022-03-03] MEDS: CefTRIAXone 2gm/D5W 50ml BAG 50 ML IV SCH (11:15)
[2022-03-03] MEDS: folic acid 1mg/0.2ml inj IV SCH (11:19)
[2022-03-03] MEDS: ferrous sulfate 300mg/5ml UD oral liquid OGT SCH ×3 (11:19→16:32)
[2022-03-03] MEDS: thiamine 100mg/ml 2ml inj. IV SCH (11:20)
[2022-03-03] MEDS: furosemide 20 MG/2 ML vial IV SCH (20:41)
[2022-03-03] MEDS: insulin glargine (Lantus) pen - multi-dose SQ SCH (20:42)
--- NOTE | 2022-03-03 21:00 | NUR ---
Communication -Called Dr. Pérez regarding pt movements. ARORA, nonpurposeful, and movements do not appear to be responses to stimuli. Eyes move rhythmically side to side and do not track or focus. No change to facial expression when name called or painful stimulus applied. Does blink when light shined in eyes, pupils are equal and brisk. Babinski: bilaterally, foot jerks away first, and then big toe flexes dorsally.
[2022-03-04] VITALS (27 sets, daily range): BP systolic 102–155; BP diastolic 31–98
[2022-03-04] MEDS: lactulose 20gm/30ml cup OGT SCH ×3 (02:00→13:08)
[2022-03-04] MEDS: metoclopramide 5 mg/ml inj IV SCH ×3 (02:00→13:08)
--- NOTE | 2022-03-04 02:14 | NUR ---
Communication -Called Dr. Pérez regarding pt has no PRN medications for pain. Order received.
[2022-03-04] MEDS ORDERED: morphine 2 MG/ML inj. syringe IV PRN (02:15)
[2022-03-04 02:28] LABS: ABG BASE EXCESS 1.2 mmol/L (-2.0-2.0); ABG HCO3 23.1 mmol/L (22.0-26.0); ABG OXYGEN SATURATION 96.3 % (94-97); ABG PCO2 (T) 28.4 mmHg (35.0-48.0); FCOHb 0.9 % (0.0-3.9); FMetHb 0.2 % (0.0-1.5); FO2Hb 95.2 % (94-97); PATIENT TEMPERATURE 37.5; PEEP 5 cm H2O; RESPIRATORY RATE 14 b/min; TIDAL VOLUME 500 mL
[2022-03-04 03:58] LABS: BASOPHILS % (AUTO) 0.1 % (0-1); EOSINOPHILS % (AUTO) 0 % (0-6); HEMOGLOBIN 8.7 g/dl (14.0-17.9); LYMPHOCYTES # (AUTO) 0.3 X10'3 (1.1-4.8); RED CELL DISTRIBUTION WIDTH 26.8 % (11.5-14.5)
[2022-03-04 04:00] LABS: HEMATOCRIT 28.8 % (42.0-52.0); LYMPHOCYTES % (AUTO) 2.7 % (21-51); MEAN CORPUSCULAR HEMOGLOBIN 19.8 PG (27.0-31.0); MEAN CORPUSCULAR HGB CONC 30.4 g/dL (33.0-36.5); MEAN CORPUSCULAR VOLUME 65.1 FL (78-98); MEAN PLATELET VOLUME 10.7 FL (7.4-10.4); MONOCYTES % (AUTO) 17.2 % (2-12); NEUTROPHILS # (AUTO) 9.5 X10'3 (1.8-7.7); RED BLOOD COUNT 4.43 X10'6 (4.70-6.10); WHITE BLOOD COUNT 11.9 X10'3 (4.5-11.0)
[2022-03-04 04:04] LABS: PLATELET COUNT 31 X10'3 (140-440)
[2022-03-04 04:11] LABS: ALANINE AMINOTRANSFERASE 44 U/L (12-78); ALBUMIN 1.5 G/DL (3.4-5.0); ALKALINE PHOSPHATASE 261 IU/L (46-116); ANION GAP 15 (8-16); ASPARTATE AMINO TRANSFERASE 85 U/L (10-37); BILIRUBIN,TOTAL 5.5 MG/DL (0.1-1.0); BLOOD UREA NITROGEN 77 MG/DL (7-18); BUN/CREATININE RATIO 39.9 (5.4-32.0); CALCIUM 8.3 MG/DL (8.5-10.1); CHLORIDE 106 MMOL/L (99-107); CREATININE 1.93 MG/DL (0.60-1.10); GLUCOSE 87 MG/DL (70-104); MAGNESIUM 2.2 MG/DL (1.5-2.4); SODIUM 147 MMOL/L (135-145); TOTAL CARBON DIOXIDE 25.8 MMOL/L (24-32); eGFR 35 ML/MIN
[2022-03-04 04:32] LABS: ALBUMIN/GLOBULIN RATIO 0.5 (1.1-1.5); ANISOCYTOSIS 3+; LARGE PLATELETS FEW; MICROCYTOSIS 1+; PHOSPHORUS 2.4 MG/DL (2.3-4.5); PLATELET ESTIMATE DECREASED; POTASSIUM 3.5 MMOL/L (3.5-5.1); TOTAL PROTEIN 4.6 G/DL (6.4-8.2)
[2022-03-04 04:33] LABS: ELLIPTOCYTES 1+; HYPOCHROMASIA 2+; TARGET CELLS 1+
[2022-03-04] MEDS: hydrocortisone sod succ/PF 100mg/2ml inj. IV SCH (08:27)
[2022-03-04] MEDS: spironolactone 25 MG tablet PO SCH ×2 (08:28→08:46)
[2022-03-04] MEDS: furosemide 20 MG/2 ML vial IV SCH (08:29)
[2022-03-04] MEDS: thiamine 100mg/ml 2ml inj. IV SCH (08:30)
[2022-03-04] MEDS: folic acid 1mg/0.2ml inj IV SCH (08:30)
[2022-03-04] MEDS: CefTRIAXone 2gm/D5W 50ml BAG 50 ML IV SCH (08:30)
[2022-03-04] MEDS: ferrous sulfate 300mg/5ml UD oral liquid OGT SCH ×2 (08:46→13:08)
[2022-03-04] MEDS: pantoprazole 40MG/NS 100ML BAG 100 ML IV SCH (08:47)
--- NOTE | 2022-03-04 11:26 | NUR ---
Reassessment: Pt remains intubated. TF had previously been turned off d/t elevated GRV in the 600s, though resumed at trickle rate of 20 mL/hr 03/03. Per EMR TF off again as pt with another GRV of 600 mL over night despite pt receiving routine Lactulose and started on routine Reglan 03/02. If tolerance to TF continues to remain poor pt would benefit from post-pyloric feeding, will d/w MD. Pt pending MRI of the head today per EMR. LBM 02/28. Will continue to follow closely. Recommendations: 1) Continuous TF using Vital HP at 80 ml/hr goal to provide 1920 ml volume, 1920 kcal, 1678 g protein, and 1605 ml water 2) IF unable to tolerate TF, consider post-pyloric feedings 3) Additional 75 mL water flush Q4H; monitor serum Na 4) PALB q Sunday/ 5) Daily scaled wts 6) Routine Lactulose and Reglan per MD; monitor need for additional bowel care 7) Routine Thiamine, Folic acid, and MVM with Iron in view of likely EtOH hx with low MCV Addendum: 03/04/22 at [address] Amended: Links added.
--- NOTE | 2022-03-04 14:15 | NUR ---
Confirmed family relationships and Daughter agreed to come to see her father Mr. Castle. After speaking with multiple other family Daughter "Wendy" believes that comfort measures would be the most humane and comforting way to move forward. [employer] and glasses given to daughter. Dr Pérez to meet with family and initiate comfort care measures.
[2022-03-04] MEDS ORDERED: spironolactone 25 MG tablet OGT SCH (14:22)
[2022-03-04] MEDS ORDERED: morphine 10mg/ml inj. IV PRN (14:35)
[2022-03-04] MEDS: LORazepam 2 mg/ml vial IV PRN ×2 (14:47→16:32)
--- NOTE | 2022-03-04 15:02 | NUR ---
At patients bedside for comfort care measures. 10mg of Morphine & 2 mg of Ativan given as per orders. Daughter at bedside to direct staff to extubate patient. Patient extubated at 1455. Will continue to monitor patients vital signs and breathing pattern until expiration and then MD or Nurse to pronounce.
[2022-03-04] MEDS: morphine 10mg/ml inj. IV PRN ×3 (15:41→17:25)
[2022-03-04] MEDS ORDERED: LORazepam 2 mg/ml vial IV PRN (16:25)
--- NOTE | 2022-03-04 18:05 | NUR ---
I have received report from Dony JIMENEZ. DNR/CC patient prior to report, daughter at bedside. Will assume care, will call donor network and notify.
--- NOTE | 2022-03-04 18:24 | NUR ---
RN IS TO DOCUMENT YES TO ALL APPLICABLE AREAS Pronouncement of : 1. Time Physician Notified:Elisa dior @ 182 2. Date of :03/04/2022 3. Time of : 1854 4. DNR/Withdraw life support documented: orders written by 5. Monitor strip has been placed on chart: yes 6. Assessment process is of one-minute duration and includes following criteria: a) Patient is unresponsive to all stimuli: yes b) Pupils fixed and non-reactive:yes c) Auscultation of precordium reveals absence of heart tones: yes d) Auscultation of lungs reveals absence of breath sounds: yes e) Absence of blood pressure / all vital signs: yes f) QRS complexes are not present on monitor / EKG strip: yes g) Pacer spikes without capture: yes 4. Comments: daughter @ bedside at time of expiration Addendum: 03/04/22 at 1833 by Dony Han RN correction 1755 was time of
--- NOTE | 2022-03-04 18:33 | NUR ---
patient time of was 1754 Dr Moseley notified @ [phone]
--- NOTE | 2022-03-04 18:43 | NUR ---
Donor network called and notified. States patient may qualify for organ donation and will call back in about an hour.
--- NOTE | 2022-03-04 19:05 | NUR ---
[facility] contacted, estimated wait time is about an hour.
== END 2022-03-04 20:43 | DRG 870 ==
LOC: ER 12:46 → CICU 2S 15:15 → EDBD 15:15
PROVIDERS: ADMIT Internal Medicine Critical Care Medicine; ATTEND Internal Medicine Critical Care Medicine
PROC: 5A1955Z Respiratory Ventilation, Greater than 96 Consecutive Hours (ICD-10-PCS; principal; 2022-02-26)
PROC: 0BH17EZ Insertion of Endotracheal Airway into Trachea, Via Natural or Artificial Opening (ICD-10-PCS; 2022-02-26)
PROC: 02HV33Z Insertion of Infusion Device into Superior Vena Cava, Percutaneous Approach (ICD-10-PCS; 2022-02-26)
PROC: 0W9G3ZZ Drainage of Peritoneal Cavity, Percutaneous Approach (ICD-10-PCS; 2022-02-26)
PROC: 03HY32Z Insertion of Monitoring Device into Upper Artery, Percutaneous Approach (ICD-10-PCS; 2022-02-27)
DX: A41.9 Sepsis, unspecified organism (principal); I21.A1 Myocardial infarction type 2; J96.01 Acute respiratory failure with hypoxia; J96.02 Acute respiratory failure with hypercapnia; R65.21 Severe sepsis with septic shock; D65 Disseminated intravascular coagulation [defibrination syndrome]; K72.00 Acute and subacute hepatic failure without coma; G93.41 Metabolic encephalopathy; N17.9 Acute kidney failure, unspecified; R18.8 Other ascites; E87.29 Other acidosis; I48.20 Chronic atrial fibrillation, unspecified; Z51.5 Encounter for palliative care; Z66 Do not resuscitate; B96.1 Klebsiella pneumoniae [K. pneumoniae] as the cause of diseases classified elsewhere; D64.9 Anemia, unspecified; N18.9 Chronic kidney disease, unspecified; F15.10 Other stimulant abuse, uncomplicated; K72.10 Chronic hepatic failure without coma; K74.60 Unspecified cirrhosis of liver; K76.82 Hepatic encephalopathy
CPT/HCPCS: 36415; 36600; 70450; 71045; 74018; 74176; 74177; 76700; 80053; 80305; 80320; 81001; 82140; 82607; 82803; 82948; 83010; 83036; 83605; 83735; 84100; 84132; 84134; 84145; 84484; 85007; 85008; 85018; 85025; 85027; 85384; 85610; 86022; 86705; 86706; 86709; 86803; 87040; 87070; 87077; 87081; 87088; 87186; 87340; 89051; 93005; 93306; 94002; 94003; 94760; 94799; 96365; 96367; 96375; 99285; A4333; A4421; A6196; A6212; A6213; A6222; A6250; A6258; A6446; A6449; C1751; C9113; G0378; J0610; J0696; J1100; J1644; J1720; J1815; J1940; J1956; J2060; J2274; J2310; J2765; J3010; J3411; J3490; J7030; J7040; J7042; J7050; J7060; Q9967